=== PATIENT | female | born 2000 | race Caucasian/White ===

== ENCOUNTER 2021-06-21 06:13 | Emergency (ER) | payer SELFPAY ==
[2021-06-21 06:15] VITALS: BP 114/66
== END 2021-06-21 12:17 | disposition left against medical advice (07) ==
LOC: ED 06:13
DX: R07.89 Other chest pain (principal); R50.9 Fever, unspecified; Z53.21 Procedure and treatment not carried out due to patient leaving prior to being seen by health care provider